=== PATIENT | female | born 1940 | race Caucasian/White ===

== ENCOUNTER 2021-08-26 21:27 | Inpatient (IN) | payer MEDICARE, OTHER ==
[2021-08-27 01:28] VITALS: BMI 18.3
[2021-08-27] MEDS ORDERED: Aspirin Chewable 81 MG TAB ONE (02:49)
[2021-08-27] MEDS ORDERED: Aspirin Chewable 81 MG TAB PO SCH (03:00)
[2021-08-27 04:29] LABS: #Monocytes 0.3 10x3/uL (0.0-1.1); #Neutrophils 12.9 10x3/uL (1.5-8.4); %Basophils 0.2 % (0.0-2.0); %Lymphocytes 6.8 % (18.0-47.0); %Neutrophils 90.4 % (40.0-75.0); Hemoglobin 10.1 g/dL (12.0-15.5); Mean Corpuscular HGB CONC 33.8 g/dL (32.0-36.0); Mean Corpuscular Hemoglobin 32.3 pg (27.0-33.0); Mean Corpuscular Volume 95.5 fl (81.6-98.3); Mean Platelet Volume 9.4 fl (7.4-10.4); Platelet Count 396 10x3/uL (150-450); RBC Distribution Width 13.2 % (11.5-14.5); Red Blood Cell (RBC) Count 3.13 10x6/uL (3.90-5.03); White Blood Cell (WBC) Count 14.3 10x3/uL (3.5-10.5)
[2021-08-27 04:37] LABS: Anion Gap 16 mmol/L (10-20); BUN (Urea Nitrogen) 23 mg/dL (9.8-20.1); Calc. Creatinine Clearance 32 mL/min (70-130); Carbon Dioxide 20 mmol/L (23-31); Chloride 106 mmol/L (98-107); Glucose 274 mg/dL (83-110); Potassium 3.2 mmol/L (3.5-5.1); Sodium 139 mmol/L (136-145)
[2021-08-27 04:38] LABS: Troponin I Less than 0.010 ng/mL (< 0.028)
[2021-08-27] MEDS: cefTRIAXone\\ROCEPHIN 1 GM in Sodium Chloride 0.9% 100 ML IVPB SCH (05:59)
[2021-08-27] MEDS: Budesonide 0.5 MG/2 ML NEB NEB SCH ×2 (06:45→18:55)
[2021-08-27] MEDS: Arformoterol 15 MCG/2 ML NEB NEB SCH ×2 (06:45→18:55)
[2021-08-27] MEDS ORDERED: methylPREDNISolone Sod Succ 40 MG VIAL IVP SCH (08:00)
[2021-08-27] MEDS ORDERED: Potassium Chloride 20 MEQ TAB PO SCH (10:00)
[2021-08-27] MEDS: Enoxaparin Sodium 30 MG/0.3 ML SYRINGE SC SCH (10:12)
[2021-08-27] MEDS: Aspirin 81 mg Enteric Coated Tablet PO SCH (10:15)
[2021-08-27] MEDS: methylPREDNISolone Sod Succ 40 MG VIAL IVP SCH ×2 (14:20→21:10)
[2021-08-27] MEDS: Benzonatate 100 MG CAP PO SCH ×2 (15:47→20:39)
[2021-08-27] MEDS: Azithromycin 500 MG in Sodium Chloride 0.9% 250 ML 250 ML IVPB SCH (20:39)
[2021-08-27] MEDS: Amitriptyline HCl 25 MG TAB PO SCH (20:39)
[2021-08-27] MEDS: guaiFENesin ER 600 MG TAB PO SCH (20:39)
[2021-08-27] MEDS: Atorvastatin Calcium 40 MG TAB PO SCH (20:39)
[2021-08-28 04:09] LABS: Hemoglobin 10.2 g/dL (12.0-15.5); Mean Corpuscular HGB CONC 32.9 g/dL (32.0-36.0); Mean Corpuscular Hemoglobin 32.2 pg (27.0-33.0); Mean Corpuscular Volume 97.8 fl (81.6-98.3); Mean Platelet Volume 9.3 fl (7.4-10.4); Platelet Count 427 10x3/uL (150-450); RBC Distribution Width 13.3 % (11.5-14.5); Red Blood Cell (RBC) Count 3.17 10x6/uL (3.90-5.03); White Blood Cell (WBC) Count 25.8 10x3/uL (3.5-10.5)
[2021-08-28 05:10] LABS: ALT (SGPT) 7 U/L (8-55); AST (SGOT) 10 U/L (5-34); Albumin 3.1 g/dL (3.4-4.8); Alkaline Phosphatase 84 U/L (40-110); Anion Gap 12 mmol/L (10-20); BUN (Urea Nitrogen) 27 mg/dL (9.8-20.1); Bilirubin, Total 0.1 mg/dL (0.2-1.2); Calc. Creatinine Clearance 36 mL/min (70-130); Calcium 8.2 mg/dL (7.8-10.44); Carbon Dioxide 23 mmol/L (23-31); Cardiac Risk 4.4 (Less than 4.5); Chloride 110 mmol/L (98-107); Cholesterol 157 mg/dl (< 200 Desired); Globulin 2.7 g/dL (2.4-3.5); Glucose 201 mg/dL (83-110); HDL Cholesterol 36 mg/dL (>60 Neg Risk); LDL Cholesterol, Calculated 101 mg/dL; Potassium 4.6 mmol/L (3.5-5.1); Protein, Total 5.8 g/dL (5.8-8.1); Sodium 140 mmol/L (136-145); Triglycerides 102 mg/dL (Less than 150)
[2021-08-28 05:16] LABS: MDiff Complete? YES; Platelet Morphology Comment Appears Increased; RBC Morphology Normal
[2021-08-28 05:18] LABS: Band 1 % (5-11); Lymphocytes 4 % (21-51); Monocytes 7 % (0-10); Neutrophil 88 % (42-75)
[2021-08-28] MEDS: cefTRIAXone\\ROCEPHIN 1 GM in Sodium Chloride 0.9% 100 ML IVPB SCH (05:41)
[2021-08-28] MEDS: methylPREDNISolone Sod Succ 40 MG VIAL IVP SCH ×3 (05:42→21:10)
[2021-08-28] MEDS: Budesonide 0.5 MG/2 ML NEB NEB SCH ×2 (06:50→19:20)
[2021-08-28] MEDS: Arformoterol 15 MCG/2 ML NEB NEB SCH ×2 (07:00→19:20)
[2021-08-28] MEDS: Enoxaparin Sodium 30 MG/0.3 ML SYRINGE SC SCH (08:03)
[2021-08-28] MEDS: guaiFENesin ER 600 MG TAB PO SCH ×2 (08:03→20:14)
[2021-08-28] MEDS: Aspirin 81 mg Enteric Coated Tablet PO SCH (08:03)
[2021-08-28] MEDS: Benzonatate 100 MG CAP PO SCH ×3 (08:03→20:14)
[2021-08-28] MEDS: Clopidogrel Bisulfate 75 MG TAB PO SCH (08:04)
[2021-08-28] MEDS: Furosemide 20 MG TAB PO SCH (08:05)
[2021-08-28 12:19] LABS: Hemoglobin A1c 5.2 % (4.0-6.0)
[2021-08-28] MEDS: Amitriptyline HCl 25 MG TAB PO SCH (20:14)
[2021-08-28] MEDS: Azithromycin 500 MG in Sodium Chloride 0.9% 250 ML 250 ML IVPB SCH (20:14)
[2021-08-28] MEDS: Atorvastatin Calcium 40 MG TAB PO SCH (20:14)
[2021-08-29 05:12] VITALS: BP 133/65; TEMP 97.2
[2021-08-29] MEDS: cefTRIAXone\\ROCEPHIN 1 GM in Sodium Chloride 0.9% 100 ML IVPB SCH (05:40)
[2021-08-29] MEDS: methylPREDNISolone Sod Succ 40 MG VIAL IVP SCH (05:40)
[2021-08-29] MEDS: Budesonide 0.5 MG/2 ML NEB NEB SCH (07:40)
[2021-08-29] MEDS: Arformoterol 15 MCG/2 ML NEB NEB SCH (07:55)
[2021-08-29] MEDS: guaiFENesin ER 600 MG TAB PO SCH (08:10)
[2021-08-29] MEDS: Benzonatate 100 MG CAP PO SCH (08:10)
[2021-08-29] MEDS: Aspirin 81 mg Enteric Coated Tablet PO SCH (08:10)
[2021-08-29] MEDS: Clopidogrel Bisulfate 75 MG TAB PO SCH (08:10)
[2021-08-29] MEDS: Enoxaparin Sodium 30 MG/0.3 ML SYRINGE SC SCH (08:11)
[2021-08-29] MEDS: Furosemide 20 MG TAB PO SCH (08:11)
== END 2021-08-29 09:30 | disposition home or self-care (01) | DRG 191 ==
LOC: CSHTELE 08-27 00:57
PROVIDERS: ADMIT Family Medicine; ATTEND Internal Medicine
DX: J44.1 Chronic obstructive pulmonary disease with (acute) exacerbation (principal); J45.901 Unspecified asthma with (acute) exacerbation; G45.9 Transient cerebral ischemic attack, unspecified; E44.0 Moderate protein-calorie malnutrition; Z68.1 Body mass index [BMI] 19.9 or less, adult; I73.9 Peripheral vascular disease, unspecified; K21.9 Gastro-esophageal reflux disease without esophagitis; Z66 Do not resuscitate; Z20.822 Contact with and (suspected) exposure to COVID-19; I25.10 Atherosclerotic heart disease of native coronary artery without angina pectoris; N18.32 Chronic kidney disease, stage 3b; I12.9 Hypertensive chronic kidney disease with stage 1 through stage 4 chronic kidney disease, or unspecified chronic kidney disease; E78.5 Hyperlipidemia, unspecified; Z88.0 Allergy status to penicillin; Z88.1 Allergy status to other antibiotic agents; Z88.8 Allergy status to other drugs, medicaments and biological substances; Z79.899 Other long term (current) drug therapy; Z95.0 Presence of cardiac pacemaker; Z95.5 Presence of coronary angioplasty implant and graft; Z90.710 Acquired absence of both cervix and uterus; Z90.49 Acquired absence of other specified parts of digestive tract; Z90.81 Acquired absence of spleen; Z87.891 Personal history of nicotine dependence
CPT/HCPCS: 36415; 70450; 80048; 80053; 80061; 83036; 83735; 84484; 85025; 93005; 93010; 93306; 93880; 94640; 94760; J0456; J0696; J1650; J2920; J3490; J7050; J7620; J7626

== ENCOUNTER 2022-05-09 13:22 | Outpatient (CLI) | payer MEDICARE, OTHER | END 2022-05-09 13:23 | disposition home or self-care (01) | LOC: CSHSPEC 13:22 | PROVIDERS: ATTEND Orthopaedic Surgery | DX: M51.24 Other intervertebral disc displacement, thoracic region (principal); Z95.0 Presence of cardiac pacemaker; M48.54XD Collapsed vertebra, not elsewhere classified, thoracic region, subsequent encounter for fracture with routine healing; M40.204 Unspecified kyphosis, thoracic region | CPT/HCPCS: 71045; 72146 ==

== ENCOUNTER 2022-12-17 01:17 | Inpatient (IN) | payer MEDICARE, OTHER ==
[2022-12-17] MEDS ORDERED: Ondansetron ODT 4 MG TAB PO PRN (03:20)
[2022-12-17] MEDS ORDERED: Senokot S 8.6-50 MG TAB PO PRN (03:20)
[2022-12-17] MEDS ORDERED: Ipratropium/Albuterol 3 ML NEB NEB PRN (03:26)
[2022-12-17 04:15] VITALS: BMI 18.5
[2022-12-17 04:19] LABS: #Basophils 0.1 10x3/uL (0.0-0.2); #Eosinphils 0.1 10x3/uL (0.0-0.5); #Monocytes 1.5 10x3/uL (0.0-1.1); #Neutrophils 8.2 10x3/uL (1.5-8.4); %Basophils 0.5 % (0.0-2.0); %Lymphocytes 25.4 % (18.0-47.0); %Monocytes 11.4 % (0.0-10.0); %Neutrophils 61.5 % (40.0-75.0); Hemoglobin 13.1 g/dL (12.0-15.5); Mean Corpuscular Hemoglobin 31.3 pg (27.0-33.0); Mean Corpuscular Volume 94.7 fl (81.6-98.3); Platelet Count 266 10x3/uL (150-450); RBC Distribution Width 14.2 % (11.5-14.5); Red Blood Cell (RBC) Count 4.19 10x6/uL (3.90-5.03); White Blood Cell (WBC) Count 13.3 10x3/uL (3.5-10.5)
[2022-12-17] MEDS ORDERED: Dextrose 5%-Lactated Ringers 1,000 ML IV SCH (04:30)
[2022-12-17 04:32] LABS: Anion Gap 13 mmol/L (10-20); BUN (Urea Nitrogen) 21 mg/dL (9.8-20.1); Calc. Creatinine Clearance 35 mL/min (70-130); Calcium 8.8 mg/dL (7.8-10.44); Carbon Dioxide 23 mmol/L (23-31); Chloride 103 mmol/L (98-107); Estimated GFR 77; Glucose 79 mg/dL (83-110); Potassium 5.2 mmol/L (3.5-5.1); Sodium 134 mmol/L (136-145)
[2022-12-17] MEDS: Furosemide 20 MG TAB PO SCH (08:45)
[2022-12-17] MEDS: Metoprolol Tartrate 50 MG TAB PO SCH ×2 (08:45→20:20)
[2022-12-17] MEDS: Famotidine 20 MG TAB PO SCH (08:45)
[2022-12-17] MEDS: Aspirin 81 mg Enteric Coated Tablet PO SCH (08:46)
[2022-12-17] MEDS: Aztreonam 1 GM in Sodium Chloride 0.9% 100 ML IVPB SCH ×2 (09:25→20:20)
[2022-12-17] MEDS: Ipratropium/Albuterol 3 ML NEB NEB SCH ×2 (18:40→23:15)
[2022-12-17] MEDS: Atorvastatin Calcium 40 MG TAB PO SCH (20:20)
[2022-12-18] MEDS: Ipratropium/Albuterol 3 ML NEB NEB SCH ×6 (03:00→22:45)
[2022-12-18 03:57] LABS: #Eosinphils 0.2 10x3/uL (0.0-0.5); #Monocytes 1.5 10x3/uL (0.0-1.1); #Neutrophils 5.1 10x3/uL (1.5-8.4); %Basophils 0.3 % (0.0-2.0); %Lymphocytes 40.8 % (18.0-47.0); %Monocytes 12.8 % (0.0-10.0); %Neutrophils 43.8 % (40.0-75.0); Hemoglobin 11.8 g/dL (12.0-15.5); Mean Corpuscular HGB CONC 32.7 g/dL (32.0-36.0); Mean Corpuscular Hemoglobin 31.2 pg (27.0-33.0); Mean Corpuscular Volume 95.5 fl (81.6-98.3); Mean Platelet Volume 9.9 fl (7.4-10.4); Platelet Count 283 10x3/uL (150-450); RBC Distribution Width 14.2 % (11.5-14.5); Red Blood Cell (RBC) Count 3.78 10x6/uL (3.90-5.03); White Blood Cell (WBC) Count 11.7 10x3/uL (3.5-10.5)
[2022-12-18 04:11] LABS: ALT (SGPT) 12 U/L (8-55); AST (SGOT) 21 U/L (5-34); Albumin 2.7 g/dL (3.4-4.8); Alkaline Phosphatase 60 U/L (40-110); Anion Gap 15 mmol/L (10-20); BUN (Urea Nitrogen) 20 mg/dL (9.8-20.1); Bilirubin, Total 0.3 mg/dL (0.2-1.2); Calc. Creatinine Clearance 34 mL/min (70-130); Calcium 8.4 mg/dL (7.8-10.44); Carbon Dioxide 25 mmol/L (23-31); Chloride 104 mmol/L (98-107); Estimated GFR 74; Globulin 2.9 g/dL (2.4-3.5); Glucose 98 mg/dL (83-110); Potassium 3.9 mmol/L (3.5-5.1); Protein, Total 5.6 g/dL (5.8-8.1); Sodium 140 mmol/L (136-145)
[2022-12-18] MEDS: Aztreonam 1 GM in Sodium Chloride 0.9% 100 ML IVPB SCH ×2 (08:47→21:38)
[2022-12-18] MEDS: Famotidine 20 MG TAB PO SCH (08:47)
[2022-12-18] MEDS: Aspirin 81 mg Enteric Coated Tablet PO SCH (08:47)
[2022-12-18] MEDS: Metoprolol Tartrate 50 MG TAB PO SCH ×2 (08:47→21:38)
[2022-12-18] MEDS: Furosemide 20 MG TAB PO SCH (08:47)
[2022-12-18] MEDS: Budesonide 0.5 MG/2 ML NEB NEB SCH (19:08)
[2022-12-18] MEDS: Atorvastatin Calcium 40 MG TAB PO SCH (21:38)
[2022-12-19] MEDS: Ipratropium/Albuterol 3 ML NEB NEB SCH ×5 (02:59→19:00)
[2022-12-19 03:52] LABS: #Basophils 0.1 10x3/uL (0.0-0.2); #Eosinphils 0.3 10x3/uL (0.0-0.5); #Monocytes 1.4 10x3/uL (0.0-1.1); #Neutrophils 5.6 10x3/uL (1.5-8.4); %Basophils 0.4 % (0.0-2.0); %Eosinophils 2.5 % (0.0-6.0); %Lymphocytes 37.9 % (18.0-47.0); %Monocytes 11.9 % (0.0-10.0); Hemoglobin 10.7 g/dL (12.0-15.5); Mean Corpuscular HGB CONC 32.3 g/dL (32.0-36.0); Mean Corpuscular Hemoglobin 30.7 pg (27.0-33.0); Mean Corpuscular Volume 94.8 fl (81.6-98.3); Mean Platelet Volume 9.9 fl (7.4-10.4); Platelet Count 301 10x3/uL (150-450); RBC Distribution Width 14.1 % (11.5-14.5); Red Blood Cell (RBC) Count 3.49 10x6/uL (3.90-5.03)
[2022-12-19 04:13] LABS: ALT (SGPT) 14 U/L (8-55); AST (SGOT) 31 U/L (5-34); Albumin 2.4 g/dL (3.4-4.8); Alkaline Phosphatase 56 U/L (40-110); Anion Gap 10 mmol/L (10-20); BUN (Urea Nitrogen) 26 mg/dL (9.8-20.1); Bilirubin, Total 0.2 mg/dL (0.2-1.2); CK (CPK) 83 U/L (29-168); Calc. Creatinine Clearance 32 mL/min (70-130); Calcium 8.1 mg/dL (7.8-10.44); Carbon Dioxide 27 mmol/L (23-31); Chloride 104 mmol/L (98-107); Estimated GFR 70; Globulin 2.7 g/dL (2.4-3.5); Glucose 87 mg/dL (83-110); Potassium 4.2 mmol/L (3.5-5.1); Protein, Total 5.1 g/dL (5.8-8.1); Sodium 137 mmol/L (136-145)
[2022-12-19] MEDS: Budesonide 0.5 MG/2 ML NEB NEB SCH ×2 (06:51→19:00)
[2022-12-19 08:55] LABS: Iron 54 ug/dL (50-170); Iron Binding Capacity, Total 283 mcg/dL (265-497)
[2022-12-19] MEDS: Aztreonam 1 GM in Sodium Chloride 0.9% 100 ML IVPB SCH ×2 (09:28→20:28)
[2022-12-19] MEDS: Furosemide 20 MG TAB PO SCH (09:31)
[2022-12-19] MEDS: Famotidine 20 MG TAB PO SCH (09:31)
[2022-12-19] MEDS: Aspirin 81 mg Enteric Coated Tablet PO SCH (09:31)
[2022-12-19] MEDS: Metoprolol Tartrate 50 MG TAB PO SCH ×2 (09:31→20:28)
[2022-12-19] MEDS: Clopidogrel Bisulfate 75 MG TAB PO SCH (09:31)
[2022-12-19] MEDS: Acetaminophen 325 MG TAB PO PRN ×2 (12:22→20:28)
[2022-12-19] MEDS ORDERED: Nicotine 14 MG PATCH TOP SCH (18:30)
[2022-12-19] MEDS: Atorvastatin Calcium 40 MG TAB PO SCH (20:28)
[2022-12-19] MEDS ORDERED: Melatonin 3 MG TAB PO SCH (21:00)
[2022-12-20] MEDS: Ipratropium/Albuterol 3 ML NEB NEB SCH ×5 (00:02→14:05)
[2022-12-20] MEDS: Acetaminophen 325 MG TAB PO PRN ×2 (00:20→14:53)
[2022-12-20 03:49] LABS: #Basophils 0.1 10x3/uL (0.0-0.2); #Eosinphils 0.3 10x3/uL (0.0-0.5); #Monocytes 1.2 10x3/uL (0.0-1.1); %Basophils 0.7 % (0.0-2.0); %Eosinophils 3.6 % (0.0-6.0); %Lymphocytes 39.2 % (18.0-47.0); %Monocytes 12.7 % (0.0-10.0); %Neutrophils 43.5 % (40.0-75.0); Hemoglobin 11.7 g/dL (12.0-15.5); Mean Corpuscular HGB CONC 33.1 g/dL (32.0-36.0); Mean Corpuscular Hemoglobin 31.2 pg (27.0-33.0); Mean Corpuscular Volume 94.4 fl (81.6-98.3); Mean Platelet Volume 9.7 fl (7.4-10.4); Platelet Count 303 10x3/uL (150-450); RBC Distribution Width 13.7 % (11.5-14.5); Red Blood Cell (RBC) Count 3.75 10x6/uL (3.90-5.03); White Blood Cell (WBC) Count 9.2 10x3/uL (3.5-10.5)
[2022-12-20 04:06] LABS: ALT (SGPT) 21 U/L (8-55); AST (SGOT) 38 U/L (5-34); Albumin 2.6 g/dL (3.4-4.8); Alkaline Phosphatase 61 U/L (40-110); Anion Gap 11 mmol/L (10-20); BUN (Urea Nitrogen) 27 mg/dL (9.8-20.1); Bilirubin, Total 0.3 mg/dL (0.2-1.2); Calc. Creatinine Clearance 36 mL/min (70-130); Calcium 8.4 mg/dL (7.8-10.44); Carbon Dioxide 28 mmol/L (23-31); Chloride 102 mmol/L (98-107); Estimated GFR 79; Globulin 2.7 g/dL (2.4-3.5); Glucose 99 mg/dL (83-110); Potassium 3.8 mmol/L (3.5-5.1); Protein, Total 5.3 g/dL (5.8-8.1); Sodium 137 mmol/L (136-145)
[2022-12-20] MEDS: Budesonide 0.5 MG/2 ML NEB NEB SCH (07:01)
[2022-12-20] MEDS: Aztreonam 1 GM in Sodium Chloride 0.9% 100 ML IVPB SCH (08:39)
[2022-12-20] MEDS: Clopidogrel Bisulfate 75 MG TAB PO SCH (08:40)
[2022-12-20] MEDS: Furosemide 20 MG TAB PO SCH (08:41)
[2022-12-20] MEDS: Famotidine 20 MG TAB PO SCH (08:41)
[2022-12-20] MEDS: Carvedilol 6.25 MG TAB PO SCH ×2 (08:41→16:58)
[2022-12-20] MEDS: Aspirin 81 mg Enteric Coated Tablet PO SCH (08:41)
[2022-12-20 15:40] VITALS: BP 158/69; TEMP 98.5
== END 2022-12-20 18:09 | DRG 194 ==
LOC: CSHIMCU 01:17 → CSHTELE 12-18 16:31 → OBSVTOIN 12-18 18:17
PROVIDERS: ADMIT Student in an Organized Health Care Education/Training Program; ATTEND Internal Medicine
DX: J18.9 Pneumonia, unspecified organism (principal); E87.1 Hypo-osmolality and hyponatremia; J44.0 Chronic obstructive pulmonary disease with (acute) lower respiratory infection; N18.9 Chronic kidney disease, unspecified; I25.10 Atherosclerotic heart disease of native coronary artery without angina pectoris; R55 Syncope and collapse; E87.5 Hyperkalemia; R53.1 Weakness; I49.5 Sick sinus syndrome; I73.9 Peripheral vascular disease, unspecified; I12.9 Hypertensive chronic kidney disease with stage 1 through stage 4 chronic kidney disease, or unspecified chronic kidney disease; D63.1 Anemia in chronic kidney disease; M79.81 Nontraumatic hematoma of soft tissue; M25.552 Pain in left hip; Z20.822 Contact with and (suspected) exposure to COVID-19; Z87.891 Personal history of nicotine dependence; Z90.89 Acquired absence of other organs; Z90.49 Acquired absence of other specified parts of digestive tract; Z88.5 Allergy status to narcotic agent; Z88.1 Allergy status to other antibiotic agents; Z88.0 Allergy status to penicillin; Z88.8 Allergy status to other drugs, medicaments and biological substances; Z91.041 Radiographic dye allergy status; Z79.899 Other long term (current) drug therapy; Z79.82 Long term (current) use of aspirin; Z95.5 Presence of coronary angioplasty implant and graft; Z95.820 Peripheral vascular angioplasty status with implants and grafts; Z95.0 Presence of cardiac pacemaker; Z86.73 Personal history of transient ischemic attack (TIA), and cerebral infarction without residual deficits; Z90.710 Acquired absence of both cervix and uterus; Z98.890 Other specified postprocedural states
CPT/HCPCS: 36415; 70450; 71045; 71250; 72170; 74177; 80048; 80053; 81003; 81015; 82550; 82607; 82728; 83540; 83550; 83605; 84484; 85025; 87040; 87086; 93005; 94640; 94760; 94762; 96365; 96367; 96372; 96376; G0378; J0456; J1650; J3490; J7620; J7626